=== PATIENT | male | born 1975 | race Caucasian/White ===

== ENCOUNTER 2017-08-09 11:36 | Emergency (ER) | payer MEDICAID, OTHER ==
[~2017-08-09] VITALS: Ht 177.8 cm; Wt 107.0 kg
[2017-08-09 11:51] VITALS: BP 104/67
[2017-08-09] MEDS ORDERED: BACITRACIN ZINC OINT UDPKT TOP ONE (15:00)
[2017-08-09] MEDS ORDERED: CEFAZOLIN SODIUM 1000MG/VIAL IM ONE (15:00)
== END 2017-08-09 15:57 | disposition home or self-care (01) ==
LOC: ER 11:54
DX: S61.214A Laceration without foreign body of right ring finger without damage to nail, initial encounter (principal); I50.9 Heart failure, unspecified; F12.10 Cannabis abuse, uncomplicated; W29.8XXA Contact with other powered hand tools and household machinery, initial encounter; Y93.89 Activity, other specified; Y92.89 Other specified places as the place of occurrence of the external cause; Y99.8 Other external cause status
CPT/HCPCS: 73140; 96372; 99284; J0690

== ENCOUNTER 2017-12-28 14:20 | Emergency (ER) | payer OTHER ==
[~2017-12-28] VITALS: Ht 170.2 cm; Wt 100.0 kg
[2017-12-28 14:29] VITALS: BP 107/75
== END 2017-12-28 18:26 | disposition left against medical advice (07) ==
LOC: ER 14:20
DX: Z53.21 Procedure and treatment not carried out due to patient leaving prior to being seen by health care provider (principal)

== ENCOUNTER 2020-09-19 07:10 | Emergency (ER) | payer OTHER ==
[~2020-09-19] VITALS: Ht 175.3 cm; Wt 80.0 kg
[2020-09-19] MEDS ORDERED: MORPHINE SULFATE 4 MG/ML CPJ (NOT FOR IM USE) IV STA (08:03)
[2020-09-19] MEDS ORDERED: FAMOTIDINE 20MG/2ML VIAL IV STA (08:03)
[2020-09-19] MEDS ORDERED: ONDANSETRON HCL 4MG/2ML INJ IV STA (08:03)
[2020-09-19 08:26] LABS: BASOPHILS % 0.3 % (0.0-2.0); EOSINOPHILS % 2.9 % (0.0-5.0); HEMATOCRIT. 45.4 % (42.0-52.0); HEMOGLOBIN. 15.6 g/dL (14.0-18.0); LYMPHOCYTES % 22.8 % (20.0-50.0); MEAN CORPUSCULAR HEMOGLOBIN 30.2 pg (28.0-32.0); MEAN CORPUSCULAR VOLUME 87.8 fL (80.0-94.0); MONOCYTES % 10.4 % (2.0-8.0); NEUTROPHILS % 63.6 % (40.0-76.0); PLATELET 255 x1000/uL (130-400); RED BLOOD CELL COUNT 5.17 mill/uL (4.7-6.1); RED CELL DISTRIBUTION WIDTH 14.5 % (11.6-14.6)
[2020-09-19 08:32] LABS: CHLORIDE 105 mEq/L (98-107)
[2020-09-19 08:34] LABS: INR 1.1; PROTHROMBIN TIME 11.3 sec (9.6-11.0)
[2020-09-19 08:35] LABS: ETHANOL BLOOD < 10 mg/dL
[2020-09-19 11:50] VITALS: BP 125/77
== END 2020-09-19 12:17 | disposition short-term general hospital (02) ==
LOC: ER 07:58 → CANBEDREQ 10:14 → ER 12:17
DX: K56.609 Unspecified intestinal obstruction, unspecified as to partial versus complete obstruction (principal); K57.30 Diverticulosis of large intestine without perforation or abscess without bleeding; I50.9 Heart failure, unspecified; Z86.711 Personal history of pulmonary embolism
CPT/HCPCS: 36415; 71045; 74176; 80053; 80320; 83690; 85025; 85610; 93005; 96374; 96375; 99285; J2270; J2405; J3490; Z7610; G0480

== ENCOUNTER 2020-11-27 00:34 | Emergency (ER) | payer OTHER ==
[~2020-11-27] VITALS: Ht 172.7 cm; Wt 90.0 kg
[2020-11-27] MEDS ORDERED: TRAMADOL 50MG TABLET PO ONE (01:15)
[2020-11-27 01:24] VITALS: BP 128/81
== END 2020-11-27 02:48 | disposition home or self-care (01) ==
LOC: ER 00:34
DX: K04.01 Reversible pulpitis (principal); I50.9 Heart failure, unspecified
CPT/HCPCS: 99283

== ENCOUNTER 2021-01-19 20:58 | Emergency (ER) | payer OTHER ==
[~2021-01-19] VITALS: Ht 172.7 cm; Wt 99.0 kg
[2021-01-19 21:21] VITALS: BP 121/79
[2021-01-20] MEDS ORDERED: CEPH500C2 MT (00:04)
== END 2021-01-20 00:11 | disposition home or self-care (01) ==
LOC: ER 20:58
DX: S61.011A Laceration without foreign body of right thumb without damage to nail, initial encounter (principal); W26.0XXA Contact with knife, initial encounter; Y93.89 Activity, other specified; Y92.89 Other specified places as the place of occurrence of the external cause; Y99.8 Other external cause status
CPT/HCPCS: 99281; 99283

== ENCOUNTER 2021-04-27 08:25 | Emergency (ER) | payer OTHER ==
[~2021-04-27] VITALS: Ht 170.2 cm; Wt 109.0 kg
[~2021-04-27 08:25] MED LIST: CEPH500C2 MT
[2021-04-27 08:33] VITALS: BP 128/71
[2021-04-27] MEDS ORDERED: PROCHLORPERAZINE 10MG/2ML VIAL IV PRN (09:00)
[2021-04-27] MEDS ORDERED: SODIUM CHLORIDE 0.9% 1,000 ML IV ONE (09:00)
[2021-04-27] MEDS ORDERED: DIPHENHYDRAMINE 50MG/ML VIAL IV ONE (09:00)
[2021-04-27] MEDS ORDERED: ACETAMINOPHEN 650MG/20.3ML UDC PO ONE (12:00)
[2021-04-27 13:36] LABS: HEMATOCRIT. 48.5 % (42.0-52.0); MEAN CORPUSCULAR HEMOGLOBIN 29.6 pg (28.0-32.0); MEAN CORPUSCULAR VOLUME 89.4 fL (80.0-94.0); MEAN PLATELET VOLUME 7.6 fl (7.4-10.4); PLATELET 278 x1000/uL (130-400); RED BLOOD CELL COUNT 5.42 mill/uL (4.7-6.1); RED CELL DISTRIBUTION WIDTH 14.3 % (11.6-14.6)
[2021-04-27 13:44] LABS: CHLORIDE 103 mEq/L (98-107)
[2021-04-27 15:05] LABS: PLATELET ESTIMATE NORMAL
== END 2021-04-27 20:30 | disposition left against medical advice (07) ==
LOC: ER 08:25
DX: R51.9 Headache, unspecified (principal); D72.825 Bandemia; I50.9 Heart failure, unspecified; I49.9 Cardiac arrhythmia, unspecified
CPT/HCPCS: 36415; 70450; 80053; 85025; 93005; 99285; J7030

== ENCOUNTER 2022-05-31 20:32 | Emergency (ER) | payer OTHER ==
[~2022-05-31] VITALS: Ht 172.7 cm; Wt 100.0 kg
[2022-05-31 21:39] LABS: BASOPHILS % 0.3 % (0.0-2.0); EOSINOPHILS % 1.9 % (0.0-5.0); HEMOGLOBIN. 17.3 g/dL (14.0-18.0); LYMPHOCYTES % 19.7 % (20.0-50.0); MEAN CORPUSCULAR HEMOGLOBIN 29.8 pg (28.0-32.0); MEAN CORPUSCULAR VOLUME 89.9 fL (80.0-94.0); MEAN PLATELET VOLUME 7.8 fl (7.4-10.4); MONOCYTES % 6.7 % (2.0-8.0); NEUTROPHILS % 71.4 % (40.0-76.0); PLATELET 272 x1000/uL (130-400); RED BLOOD CELL COUNT 5.79 mill/uL (4.7-6.1); RED CELL DISTRIBUTION WIDTH 14.1 % (11.6-14.6)
[2022-05-31 21:44] LABS: CHLORIDE 104 mEq/L (98-107); INR 1.1; PROTHROMBIN TIME 11.4 sec (9.6-11.0)
[2022-05-31 21:51] LABS: ETHANOL BLOOD < 10 mg/dL
[2022-05-31] MEDS ORDERED: ONDANSETRON HCL 4MG/2ML INJ IV STA (22:03)
[2022-05-31] MEDS ORDERED: MORPHINE SULFATE 4 MG/ML CPJ (NOT FOR IM USE) IV STA (22:03)
[2022-05-31] MEDS ORDERED: SODIUM CHLORIDE 0.9% 1,000 ML IV ONE (22:15)
[2022-06-01 00:52] LABS: CLARITY URINE CLEAR (CLEAR); COLOR URINE YELLOW (YELLOW); KETONES URINE TRACE (NEGATIVE); LEUKOCYTE ESTERASE URINE NEGATIVE (NEGATIVE); NITRITE URINE NEGATIVE (NEGATIVE); OCCULT BLOOD URINE NEGATIVE (NEGATIVE); PROTEIN URINE NEGATIVE (NEGATIVE); SPECIFIC GRAVITY URINE 1.039 (1.005-1.030); UROBILINOGEN URINE 0.2 E.U./dL (0.2-1.0)
[2022-06-01 01:10] LABS: *AMPHETAMINES SCREEN URINE PRESUMTIVE POSITIVE (NEGATIVE); *BARBITURATES SCREEN URINE NEGATIVE (NEGATIVE); *BENZODIAZEPINES SCREEN URINE NEGATIVE (NEGATIVE); *COCAINE SCREEN URINE NEGATIVE (NEGATIVE); CANNABINOID URINE SCREEN NEGATIVE (NEGATIVE); METHADONE URINE SCREEN NEGATIVE (NEGATIVE); OPIATES URINE SCREEN PRESUMTIVE POSITIVE (NEGATIVE); PHENCYCLIDINE URINE SCREEN NEGATIVE (NEGATIVE)
[2022-06-01 02:50] VITALS: BP 118/73
== END 2022-06-01 03:03 | disposition short-term general hospital (02) ==
LOC: ER 20:32
DX: K56.609 Unspecified intestinal obstruction, unspecified as to partial versus complete obstruction (principal); I50.9 Heart failure, unspecified; Z90.49 Acquired absence of other specified parts of digestive tract; Z20.822 Contact with and (suspected) exposure to COVID-19
CPT/HCPCS: 36415; 74176; 80053; 80305; 80320; 81003; 83690; 83880; 85025; 85610; 87426; 93005; 96361; 96374; 96375; 99285; C9803; J2270; J2405; J7030; G0480

== ENCOUNTER 2024-06-28 13:41 | Emergency (ER) | payer MEDICAID, OTHER ==
[~2024-06-28] VITALS: Ht 172.7 cm; Wt 109.0 kg
[2024-06-28 13:45] VITALS: PULSE 99; RESP 16; O2SAT 98
[2024-06-28 13:52] VITALS: BP 128/83; TEMP 36.8; O2SAT 99
[2024-06-28] MEDS ORDERED: IBUPROFEN 600MG TABLET PO ONE (14:45)
[2024-06-28] MEDS ORDERED: TETANUS, DIPHTHERIA, PERTUSSIS VAC/PF 0.5ML (>10YR OLD) IM ONE (14:45)
[2024-06-28] MEDS ORDERED: IBUP-2029 PO (15:02)
[2024-06-28] MEDS ORDERED: CEPH500C2 MT (15:02)
[2024-06-28] MEDS ORDERED: SULF1TAB48 MT (15:02)
== END 2024-06-28 15:28 | disposition home or self-care (01) ==
LOC: ER 13:41
DX: L03.116 Cellulitis of left lower limb (principal); I50.9 Heart failure, unspecified; Z90.49 Acquired absence of other specified parts of digestive tract
CPT/HCPCS: 90715; 99283

== ENCOUNTER 2024-07-14 14:07 | Emergency (ER) | payer OTHER ==
[~2024-07-14] VITALS: Ht 177.8 cm; Wt 95.0 kg
[~2024-07-14 14:07] MED LIST changes: +IBUP-2029 PO; +SULF1TAB48 MT
[2024-07-14 14:09] VITALS: O2SAT 99
[2024-07-14 14:18] VITALS: BP 121/69; PULSE 90; RESP 16; TEMP 36.9; O2SAT 100
[2024-07-14 15:44] LABS: CLARITY URINE CLEAR (CLEAR); COLOR URINE YELLOW (YELLOW); GLUCOSE URINE NEGATIVE (NEGATIVE); KETONES URINE NEGATIVE (NEGATIVE); LEUKOCYTE ESTERASE URINE NEGATIVE (NEGATIVE); NITRITE URINE NEGATIVE (NEGATIVE); OCCULT BLOOD URINE NEGATIVE (NEGATIVE); PROTEIN URINE NEGATIVE (NEGATIVE); SPECIFIC GRAVITY URINE 1.027 (1.005-1.030); UROBILINOGEN URINE 0.2 E.U./dL (0.2-1.0)
[2024-07-14] MEDS ORDERED: CEFTRIAXONE SODIUM 500MG VIAL IM ONE (15:45)
[2024-07-14] MEDS ORDERED: LIDOCAINE HCL 1% 20ML VIAL INFIL ONE (15:45)
[2024-07-14] MEDS ORDERED: DOXY100C5 MT (16:21)
[2024-07-17 05:19] LABS: CHLAMYDIA TRACHOMATIS NAA Negative (Negative); NEISSERIA GONORRHOEAE NAA Negative (Negative)
== END 2024-07-14 17:03 | disposition home or self-care (01) ==
LOC: ER 14:07
DX: Z20.2 Contact with and (suspected) exposure to infections with a predominantly sexual mode of transmission (principal); I50.9 Heart failure, unspecified; Z90.49 Acquired absence of other specified parts of digestive tract; Z79.899 Other long term (current) drug therapy
CPT/HCPCS: 81003; 87491; 87591; 99283